=== PATIENT | female | born 1935 | race Caucasian/White ===

== ENCOUNTER 2017-01-11 10:08 | Inpatient (IN) ==
--- NOTE | 2017-01-11 10:29 | PROVIDER DOCUMENTATION ---
HPI-Abdominal Pain/GI Problem - General Chief Complaint: N/V/D Stated Complaint: N/V/D Time Seen by Provider: 01/11/17 10:14 Source: patient, EMS Allergies/Adverse Reactions: Patient Allergies Allergy/AdvReac Type Severity Reaction Status Date / Time No Known Allergies Allergy Verified 01/11/17 10:16 Home Medications: Home Medication List Medication Instructions Recorded Confirmed Last Taken Type Sitagliptin Phos/Metformin HCl 1 each PO BID 09/27/14 12/14/16 01/31/16 History [Janumet 50-1,000 mg Tablet] Alprazolam 0.5 mg PO BID PRN PRN #60 tablet 09/29/14 12/14/16 01/31/16 Rx Amlodipine Besylate 10 mg PO DAILY #30 tablet 09/29/14 12/14/16 01/31/16 Rx Docusate Sodium 100 mg PO BID #60 capsule 09/29/14 12/14/16 01/31/16 Rx Donepezil HCl [Aricept] 5 mg PO QPM #30 tablet 09/29/14 12/14/16 01/30/16 Rx Lisinopril 20 mg PO BID #30 tablet 09/29/14 12/14/16 01/31/16 Rx Mirtazapine 15 mg PO QHS #30 tablet 09/29/14 12/14/16 01/30/16 Rx Simvastatin 20 mg PO QHS #30 tablet 09/29/14 12/14/16 01/30/16 Rx Levothyroxine [Synthroid] 25 microgm PO DAILY 02/01/16 12/14/16 01/31/16 History Olanzapine Rapdis [Zyprexa Zydis] 2.5 mg PO QHS #30 tablet 02/04/16 12/14/16 Unknown Rx Amitriptyline [Elavil] 10 mg PO HS 12/14/16 12/14/16 Unknown History Furosemide [Furosemide] 20 mg PO DAILY 12/14/16 12/14/16 Unknown History Furosemide [Lasix] 20 mg PO DAILY #30 tablet 12/14/16 Unknown Rx - History of Present Illness-ABD Nature of Presenting Problems: 81 YO WF with hx of Alzheimers on Hospice presents by EMS for nausea/vomiting and stomach pain. Vomited several times this morning, thinks has had diarrhea but doesn't know. No new medication. Denies pain other than in her stomach. Abdominal Pain Onset Location: reports: RLQ, epigastric Pain Radiation: reports: no radiation Quality of Pain: reports: cramping Severity in ED: reports: moderate Onset/Duration: reports: this morning Activities at Onset: reports: sleep Exposure to sick contacts?: No Modifying Factors: improves with: nothing Associated Symptoms: reports: nausea, vomiting. denies: anxiety, arm pain, back /neck pain, chest pain, constipation, cough, diaphoresis, diarrhea, dizziness, EENT symptoms, fever/chills, genitourinary problems, headaches, heartburn, sinus congestion/drainage, rash, shortness of breath, sensory/motor loss, syncope, weakness Last BM: unsure Dark Stools Present?: reports: none noticed Rectal Bleeding: reports: none Rectal Pain: reports: none Review of Systems - Adult - REVIEW OF SYSTEMS - ADULT Constitutional: denies: chills, fever Eyes: denies: decreased vision, blurred vision, double vision Ears, Nose, Mouth & Throat: reports: no symptoms reported Cardiovascular: denies: chest pain, syncope Respiratory: denies: cough, shortness of breath, wheezing Gastrointestinal: reports: abdominal pain, diarrhea, nausea, vomiting Genitourinary: reports: no symptoms reported Musculoskeletal: denies: bone pain, back pain, joint pain, joint swelling, neck pain Integumentary: denies: itching, rash Neurological: denies: dizziness/vertigo, headache/migraines Psychiatric: reports: no symptoms reported Past History - Adult - PAST MEDICAL HISTORY-ADULT Review of Records: reports: Old Records Reviewed, Nursing Assessment Review, Medications Reviewed Major Childhood Illnesses: reports: denies history Cardiovascular: reports: HTN, hyperlipidemia Endocrine/Immune: reports: Diabetes, thyroid disorder Other Conditions: reports: MRSA - PRIOR SURGERIES/PROCEDURES Surgical/Procedure History: reports: orthopedic (extremity) (foot surgery) - PRIOR HOSPITALIZATIONS Prior Hospitalizations: reports: for other non-related - IMMUNIZATION STATUS Childhood Immunizations: See Nurse Assessment Flu Vaccine: See Nurse Assessment - FAMILY HISTORY Family History: reviewed, not pertinent Physical Exam-General - PHYSICAL EXAM-ADULT Initial Vital Signs Reviewed: Yes - CONSTITUTIONAL General Appearance: alert, mild distress - EYES Eyes: PERRL/EOMI, pink conjunctivae. negative: sclera injected, scleral icterus - HEAD, EARS, NOSE, MOUTH & THROAT HENMT: normocephalic/atraumatic, pharynx normal. negative: angioedema, hearing deficit - NECK Neck: full range of motion, supple, normal inspection - RESPIRATORY Respiratory: chest non-tender, lungs clear, normal breath sounds, no pleuratic chest pain, no respiratory distress, no accessory muscle use. negative: crackles, rales, rhonchi, stridor, wheezing - CARDIOVASCULAR Cardiovascular: normal peripheral pulses, regular rate, rhythm - GASTROINTESTINAL (ABDOMEN) Abdominal Exam: normal bowel sounds, soft, tenderness (epigatric, RLQ). negative: distended, guarding, rigid, rebound - LYMPHATIC Lymphatic: negative: cervical node tenderness - MUSCULOSKELETAL Extremity: non-tender, normal gait, normal inspection, no pedal edema, no calf tenderness. negative: deformity, erythema, inflammation, joint effusion Peripheral Pulses: radial (R): 2+, radial (L): 2+ - SKIN Integumentary: warm/dry, pallor - NEUROLOGIC Neurologic: transportation consultant II-XII nml as tested, grossly normal - PSYCHIATRIC Psych/Mental Status: other (pt calm and answers questions, but can't remember anything) Progress - PLAN OF CARE/RESULTS Progress/Plan/Lab Results: Vital Signs - 8 hr 01/11/17 10:09 Temperature 97.1 F L Pulse Rate 74 Respiratory Rate 16 Blood Pressure 129/58 O2 Sat by Pulse Oximetry 96 Orders Category Date Time Status Saline Loc DIRECTED Care 01/11/17 10:22 Ordered NPO Diet 01/11/17 10:22 Ordered AMYLASE [CHEM] Stat Lab 01/11/17 10:22 Ordered CBC WITH ELECTRONIC DIFF [HEME] Stat Lab 01/11/17 10:22 Ordered COMPREHENSIVE METABOLIC PANEL [CHEM] Stat Lab 01/11/17 10:22 Ordered LIPASE [CHEM] Stat Lab 01/11/17 10:[address] W/POSS RFLX CULT [URINALYSIS] Stat Lab 01/11/17 10:22 Uncollected Result Diagrams: 01/11/17 10:37 01/11/17 10:37 - REASSESSMENT Reassessment #1 Time Reassessed: 11:56 (Discussed wtih Dr. Amin. Admission for altered mental status, vomiting. Has UTI) - CONSULTS/PCP/HOSPITALIST Notification #1 *Consult/PCP/Hospitalist*: Sushma Schneider NP for Dr. Hart Time Discussed: 12:06 (Admit for hyponatremia, altered mental status, vomiting) Consult Disposition: Admit Departure - Departure Date of Disposition Decision: 01/11/17 Time of Disposition Decision: 12:09 DIAGNOSIS: Hyponatremia Altered mental status Qualifiers: Altered mental status type: unspecified Qualified Code(s): R41.82 - Altered mental status, unspecified UTI (urinary tract infection) Qualifiers: Urinary tract infection type: site unspecified Hematuria presence: without hematuria Qualified Code(s): N39.0 - Urinary tract infection, site not specified Vomiting Qualifiers: Vomiting type: unspecified Vomiting Intractability: non-intractable Nausea presence: with nausea Qualified Code(s): R11.2 - Nausea with vomiting, unspecified Disposition: ADMITTED INPATIENT 09 Certified Medical Emergency: Emergent Condition: Stable - Critical Care Note This patient required my direct & personal management of CC.: No Attestation - Physician/ TIERA Attestation Patient care was provided by Advanced Practice Provider:: Yes Advanced Practice Provider:: Jamie Delgado Advanced Practice Provider documentation review:: The Mid-level provider documentation, treatment plan and medical decision making was reviewed by the physician who agrees with all treatment and medical decision making by the P. The physician spent face to face time with patient:: No Advanced Practice Provider documentation review:: Supervising physician onsite and consulted in the evaluation and care of this patient. The physician did not have a face to face encounter with the patient.
[2017-01-11 10:42] LABS: MANUAL DIFF NEEDED? NO
[2017-01-11 10:43] LABS: BASO% 0.3 % (0.0-0.8); EOS# 0.04 X1000 (0.0-0.7); EOS% 0.6 % (0.0-10.0); HEMATOCRIT 34.1 % (37.0-47.0); HEMOGLOBIN 11.7 g/dL (12.0-16.0); IMM GRAN# 0.05 X1000 (0.0-0.04); IMM GRAN% 0.8 % (0.0-0.5); LYMPH# 1.34 X1000 (1.2-3.4); LYMPH% 20.8 % (20.5-51.1); MCH 27.6 PG (27-31); MCHC 34.3 g/dL (33-37); MCV 80.4 FL (81-99); MONO# 0.28 X1000 (0.11-0.59); MONO% 4.3 % (1.7-9.3); MPV 10.3 FL (7.4-10.4); NEUT% 73.2 % (42.2-75.2); PLT 175 X1000 (130-400); RBC 4.24 XMIL (4.2-5.4)
[2017-01-11 11:04] LABS: ALBUMIN 3.8 g/dL (3.5-5.0); CALCIUM 8.8 mg/dL (8.8-10.2); POTASSIUM 4.3 mmol/L (3.5-5.1); TOTAL BILIRUBIN 0.4 mg/dL (0.20-1.00); TOTAL PROTEIN 7.6 g/dL (6.3-8.3)
[2017-01-11 11:30] LABS: BILIRUBIN URINE NEGATIVE (NEGATIVE); BLOOD URINE NEGATIVE (NEGATIVE); CLARITY CLEAR (CLEAR); COLOR YELLOW; LEUKOCYTES URINE 2+ (NEGATIVE); NITRITE URINE POSITIVE (NEGATIVE); PROTEIN URINE TRACE mg/dL (NEGATIVE); SP GRAVITY URINE 1.015; UROBILINOGEN URINE NORMAL
[2017-01-11 11:31] LABS: URINE EPITHELIAL CELLS <10 /HPF (<10); URINE WBC 20-40 /HPF (<10)
[2017-01-11 11:32] LABS: URINE CULTURE PL NEEDED? YES; URINE SOURCE CATH
[2017-01-11] MEDS ORDERED: NS 1,000 ML IV ONE (11:50)
[2017-01-11] MEDS ORDERED: ZOFRAN ONE (12:04)
[2017-01-11] MEDS ORDERED: ZOFRAN IV ONE (12:26)
[2017-01-11] MEDS ORDERED: ZOFRAN IV PRN (17:11)
[2017-01-11] MEDS: NS 1,000 ML IV SCH (17:37)
[2017-01-11] MEDS: LEVAQUIN 500 MG/D5W 500 MG/100 ML IVPB IV SCH (17:38)
[2017-01-11] MEDS: XANAX PO PRN (18:11)
[2017-01-11] MEDS: ELAVIL PO SCH (20:46)
[2017-01-11] MEDS: ZYPREXA ZYDIS PO SCH (20:46)
[2017-01-11] MEDS: PRINIVIL PO SCH (20:47)
[2017-01-11] MEDS: COLACE PO SCH (20:47)
[2017-01-11] MEDS: ARICEPT PO SCH (20:47)
[2017-01-11] MEDS: REMERON PO SCH (20:47)
--- NOTE | 2017-01-12 03:48 | PROGRESS NOTE ---
DATE: 01/11/2017 ADDENDUM: Patient seen and examined. Plan discussed with nurse practitioner. Please see full note. Patient currently is confused. She does have a UTI and has some metabolic encephalopathy, although she has baseline dementia. We will continue to follow. Certainly expect that patient may need further inpatient treatment after her medical has stabilized and will need to be transitioned to rehab. We will continue to follow. cc: Donovan Hart MD
[2017-01-12] MEDS: PRILOSEC PO SCH (06:19)
[2017-01-12 06:31] LABS: HEMATOCRIT 32.6 % (37.0-47.0); HEMOGLOBIN 10.7 g/dL (12.0-16.0); MCH 26.5 PG (27-31); MCHC 32.8 g/dL (33-37); MCV 80.7 FL (81-99); MPV 10.5 FL (7.4-10.4); RBC 4.04 XMIL (4.2-5.4)
[2017-01-12] MEDS: NS 1,000 ML IV SCH ×2 (06:43→19:59)
[2017-01-12] MEDS ORDERED: SYNTHROID PO SCH (07:00)
[2017-01-12 07:19] LABS: AGAP 9; ALBUMIN 3.2 g/dL (3.5-5.0); ALKALINE PHOSPHATASE 97 U/L (32-104); BUN 11 mg/dL (8-22); CALCIUM 8.5 mg/dL (8.8-10.2); CHLORIDE 103 mmol/L (98-107); COSMO 275; GOT 13 U/L (10-30); GPT 10 U/L (10-36); MAGNESIUM 1.6 mg/dL (1.5-2.7); POTASSIUM 3.8 mmol/L (3.5-5.1); SODIUM 136 mmol/L (136-145); TCO2 24 mmol/L (25-35); TOTAL PROTEIN 6.5 g/dL (6.3-8.3)
[2017-01-12] MEDS: LASIX PO SCH (08:08)
[2017-01-12] MEDS: PRINIVIL PO SCH ×2 (08:08→20:30)
[2017-01-12] MEDS: COLACE PO SCH ×2 (08:08→20:30)
[2017-01-12] MEDS: NORVASC PO SCH (08:08)
[2017-01-12] MEDS ORDERED: SYNTHROID PO ONE (08:30)
--- NOTE | 2017-01-12 11:19 | Diag Imaging Result Doc PS360 ---
EXAM: CHEST-PORTABLE HISTORY: Rehab Placement TECHNIQUE: Single view of the chest was performed portably. COMPARISON: 12/14/2016 FINDINGS: There is mild cardiomegaly. The pulmonary vasculature is not congested. No infiltrate, effusion, or pneumothorax is appreciated. There are degenerative changes about the humeral heads bilaterally. IMPRESSION: Mild cardiomegaly. No acute cardiopulmonary abnormality is identified. Electronically signed by Danielle Engle 01/12/2017 11:16 AM
--- NOTE | 2017-01-12 16:41 | HISTORY AND PHYSICAL ---
PRIMARY CARE PHYSICIAN: Dr. Paulo Etienne. CHIEF COMPLAINT: Nausea, vomiting and diarrhea. HISTORY OF PRESENT ILLNESS: This is an 81-year-old female with a history of Alzheimer, who is presently on hospice, who presented to the emergency room for reportedly nausea , vomiting and abdominal pain. She had vomited up quite a few times this morning, had diarrhea , therefore was sent to the emergency room for evaluation. She does have a history of diabetes mellitus, as well as hypothyroidism. At the time of my exam, there are no family members present , and the patient is unable to give a history. She has been given IV hydration, as well as Zofran , and she is being admitted for further evaluation and treatment. PAST MEDICAL HISTORY: Diabetes mellitus, hypertension, dementia, hypothyroid, questionable irregular heart rhythm. PAST SURGICAL HISTORY: Hysterectomy and bilateral cataract surgery. SOCIAL HISTORY: Unable to obtain. ALLERGIES: No allergies per chart. HOME MEDICATIONS: A list will be obtained. REVIEW OF SYSTEMS: Unable to be obtained due to patient's dementia. PHYSICAL EXAMINATION: GENERAL: This is an 81-year-old female, who is lying in the bed in no distress at present. VITAL SIGNS: Blood pressure is 119/69 with a heart rate of 74, respirations are 18, temperature is 97.7 degrees with room air saturations of 98% to 100%. HEENT: Head is normocephalic, atraumatic. Pupils equal, round, react to light. EOMS are intact. Sclerae nonicteric. Mucous membranes are dry. NECK: Supple. Trachea midline. CARDIOVASCULAR: Regular rate and rhythm. S1, S2 appreciated. PULMONARY: Breath sounds are clear with no increased work of breathing noted. GASTROINTESTINAL: She does have some right epigastric tenderness. GASTROINTESTINAL: Abdomen is soft with bowel sounds in all 4 quadrants. EXTREMITIES: No clubbing, cyanosis, or edema. Calves are nontender. Pulses are palpable x4. NEUROLOGIC: She is alert. She is calm, but she cannot answer questions. She does have purposeful movement. LABS: WBC is 6.4 with hemoglobin 11.7, hematocrit 34.1, and platelets 175. Sodium is 130, potassium 4.3, BUN 19, creatinine 0.9 with glucose of 343. Lipase is 63, nitrite positive, 20-40 microscopic white blood cells and 3+ bacteria. Urine culture is pending. X-RAYS: Her chest x-ray revealed mild cardiomegaly, no acute cardiopulmonary abnormality identified. ASSESSMENT AND PLAN: 1. Nausea, vomiting and diarrhea. 2. Urinary tract infection. 3. Hyponatremia. 4. Elevated lipase. 5. History of diabetes mellitus. 6. Hypertension. 7. Dementia. PLAN: She will be admitted to the hospital. Placed on telemetry. Will give gentle hydration. We will identify her home medications and continue as appropriate. Urine culture is pending. We will start with Levaquin and any change in antibiotics will be culture driven. Diet as tolerated. Pattern blood glucose with sliding scale insulin. Further treatments pending hospital course. Dictated by DANIEL Smith for Donovan Hart MD cc: DANIEL Smith MD MTDD
[2017-01-12] MEDS: HUMALOG DOSE (PARKWAY) SUBQ SCH ×2 (16:45→23:48)
[2017-01-12] MEDS: LEVAQUIN 500 MG/D5W 500 MG/100 ML IVPB IV SCH (16:46)
[2017-01-12] MEDS ORDERED: BENADRYL IM PRN (18:04)
[2017-01-12] MEDS: XANAX PO PRN (18:21)
[2017-01-12] MEDS: ELAVIL PO SCH (20:29)
[2017-01-12] MEDS: ZYPREXA ZYDIS PO SCH (20:29)
[2017-01-12] MEDS: REMERON PO SCH (20:30)
[2017-01-12] MEDS: ARICEPT PO SCH (20:30)
[2017-01-13] MEDS: HALDOL IM PRN ×2 (02:14→21:13)
[2017-01-13] MEDS: PRILOSEC PO SCH (06:39)
[2017-01-13] MEDS: SYNTHROID PO SCH (06:40)
[2017-01-13] MEDS: HUMALOG DOSE (PARKWAY) SUBQ SCH ×4 (06:40→21:13)
--- NOTE | 2017-01-13 09:02 | PROGRESS NOTE ---
DATE: 01/12/2017 SUBJECTIVE: The patient is confused, disoriented. She is convinced that she is in someone else's room and he will be mad when he comes back. OBJECTIVE: Vital Signs: Reviewed. She is afebrile. Blood pressure is stable. Heart rate is stable. General: Patient is awake, alert. She is very anxious, nervous and easily upset. She is confused, disoriented to time, person, place. HEENT: Normocephalic, atraumatic. Neck: Supple. CV: Regular rate. Chest: Clear. Abdomen: Soft. Extremities: Moves all extremities. Neurologic: No changes. ASSESSMENT: 1. Urinary tract infection. 2. Acute metabolic encephalopathy secondary to urinary tract infection. 3. Hyponatremia, resolved. PLAN: We will discontinue her Chahal. We will use Haldol, Benadryl as needed for acute agitation and continue to adjust her Seroquel, as well as other medications to attempt to help with her acute agitation. Further orders as needed. cc: Donovan Hart MD
[2017-01-13] MEDS: PRINIVIL PO SCH ×2 (09:37→20:35)
[2017-01-13] MEDS: LASIX PO SCH (09:37)
[2017-01-13] MEDS: COLACE PO SCH ×2 (09:37→20:35)
[2017-01-13] MEDS: NORVASC PO SCH (09:37)
--- NOTE | 2017-01-13 14:38 | PROGRESS NOTE ---
DATE: 01/13/2017 SUBJECTIVE: Patient without any new complaints. She is confused and no family is present. OBJECTIVE: Vital Signs: Reviewed. She is afebrile. Blood pressure is stable. Respiratory 22. General: Patient is awake, alert. She is confused, disoriented to person, place and time. She gets quite anxious at times when she gets confused and thinks that she is in someone else's room. HEENT: Normocephalic, atraumatic. Neck: Supple. CV: Regular rate. Chest: Clear. Abdomen: Soft. Extremities: Moves all extremities. ASSESSMENT: 1. Gram positive cocci urinary tract infection. Continue antibiotics. 2. Nausea, vomiting appears to be resolved 3. Chronic dementia, stable. 4. Hypertension. 5. Diabetes. PLAN: Will continue patient on antibiotics. Will follow culture and sensitivity. Will begin looking for rehab placement. Further orders as needed. cc: Donovan Hart MD
--- NOTE | 2017-01-13 15:55 | Diag Imaging Result Doc PS360 ---
US ABDOMEN-COMPLETE - 01/13/2017 INDICATION: ELEVATED LIPASE, N/V/D COMPARISON: None FINDINGS: The liver, gallbladder, spleen, pancreas, and both kidneys are normal. Common bile duct measures 7 mm. Aorta, IVC, and main portal vein are patent. IMPRESSION: Negative exam. Electronically signed by Jeffrey Nascimento 01/13/2017 3:53 PM
[2017-01-13] MEDS ORDERED: LEVAQUIN PO SCH (17:00)
[2017-01-13] MEDS: ARICEPT PO SCH (20:35)
[2017-01-13] MEDS: ELAVIL PO SCH (20:35)
[2017-01-13] MEDS: ZYPREXA ZYDIS PO SCH (20:35)
[2017-01-13] MEDS: REMERON PO SCH (20:35)
[2017-01-14] MEDS: HUMALOG DOSE (PARKWAY) SUBQ SCH ×4 (06:34→20:59)
[2017-01-14] MEDS: PRILOSEC PO SCH (06:35)
[2017-01-14] MEDS: SYNTHROID PO SCH (06:35)
[2017-01-14] MEDS: PRINIVIL PO SCH ×2 (08:27→21:03)
[2017-01-14] MEDS: LASIX PO SCH (08:27)
[2017-01-14] MEDS: COLACE PO SCH ×2 (08:27→21:03)
[2017-01-14] MEDS: NORVASC PO SCH (08:28)
[2017-01-14] MEDS: DOXYCYCLINE PO SCH ×2 (11:08→21:03)
--- NOTE | 2017-01-14 20:01 | PROGRESS NOTE ---
DATE: 01/14/2017 SUBJECTIVE: Patient is much more awake and alert this morning. She denies any complaints. Family is sitting in the room. Denies any GI or issues. OBJECTIVE: Vital Signs: Reviewed. Blood pressure is stable. Pulse 72, respiratory rate 18, blood pressure 126/55. General: Patient is awake, alert. She is actually oriented to time, person, place this morning. She is in no respiratory distress. Neck: Supple. CARDIOVASCULAR: Regular rate. Chest: Relatively clear. Abdomen: Soft. Extremities: Moves all extremities. ASSESSMENT: 1. Staph epidermidis urinary tract infection sensitive to doxycycline, resistant to Levaquin. 2. Acute metabolic encephalopathy appears resolved, secondary to urinary tract infection. 3. Nausea and vomiting secondary to urinary tract infection, resolved. 4. Chronic mild dementia. 5. Hypertension. 6. History of diabetes. 7. Hyponatremia, resolved. PLANS: Patient is much more awake and alert this morning, although she certainly is still weak and tired and may need rehab. We will readdress in the a.m. and determine her physical status at that point. Further orders as needed. cc: Donovan Hart MD
[2017-01-14] MEDS: ZYPREXA ZYDIS PO SCH (21:02)
[2017-01-14] MEDS: REMERON PO SCH (21:02)
[2017-01-14] MEDS: ELAVIL PO SCH (21:02)
[2017-01-14] MEDS: ARICEPT PO SCH (21:03)
[2017-01-14] MEDS: HALDOL IM PRN (21:04)
[2017-01-15] MEDS: SYNTHROID PO SCH (07:12)
[2017-01-15] MEDS: HUMALOG DOSE (PARKWAY) SUBQ SCH ×2 (07:12→11:28)
[2017-01-15] MEDS: PRILOSEC PO SCH (07:12)
[2017-01-15] MEDS ORDERED: GLUCOPHAGE PO SCH (08:00)
[2017-01-15] MEDS ORDERED: JANUVIA PO SCH (08:00)
[2017-01-15] MEDS ORDERED: NON-FORMULARY MED (Sitagliptin Phos/Metformin Hcl [Janumet 50-1,000 Mg Tablet] 1 EACH) PO SCH (09:00)
[2017-01-15] MEDS: COLACE PO SCH (09:13)
[2017-01-15] MEDS: PRINIVIL PO SCH (09:14)
[2017-01-15] MEDS: DOXYCYCLINE PO SCH (09:14)
[2017-01-15] MEDS: NORVASC PO SCH (09:14)
[2017-01-15] MEDS: LASIX PO SCH (09:14)
--- NOTE | 2017-01-15 13:13 | DISCHARGE SUMMARY ---
ADMISSION DATE: 01/11/2017 DISCHARGE DATE: 01/15/2017 DIAGNOSES: 1. Urinary tract infection, staph epidermidis; resistant to Levaquin, doxycycline sensitive. 2. Acute metabolic encephalopathy secondary to #1, resolved. 3. Nausea and vomiting secondary to #1, resolved. 4. Chronic mild dementia. 5. Hypertension. 6. Diabetes mellitus. 7. Hyponatremia, resolved. DIAGNOSTICS: On 01/12/2017 chest x-ray: Mild cardiomegaly. No acute cardiopulmonary abnormality is identified. On 01/13/2017 abdominal ultrasound revealed liver, gallbladder, spleen, pancreas, and both kidneys are normal. Common bile duct measures 7 mm. Aorta, IVC, and main portal vein are patent. Negative exam. HOSPITAL COURSE: Ms. Zamarripa presented to the emergency room complaining of nausea, vomiting, and diarrhea. She was found to have a urinary tract infection. She was initially started on Levaquin and once cultures returned it was noted that she was Levaquin resistant. Therefore, she was changed over to doxycycline which she is tolerating well. We did continue her home medications as appropriate. We trended electrolytes and repleted as necessary. She was noted to have a TSH of 7.33. Therefore, her levothyroxine was increased to 50 mcg daily. PHYSICAL EXAMINATION: Cardiovascular: Regular rate and rhythm. S1, S2 appreciated. Pulmonary: Breath sounds are clear. No increased work of breathing noted. Gastrointestinal: Abdomen is soft, nontender, nondistended. Bowel sounds in all 4 quadrants. Extremities: No clubbing, cyanosis, or edema. Calves are nontender. Pulses are palpable x4. DISCHARGE MEDICATIONS: Amlodipine 10 mg p.o. daily, Elavil 10 p.o. at bedtime, Aricept 5 every evening, Remeron 15 at bedtime, lisinopril 20 b.i.d., Lasix 20 mg daily, Janumet b.i.d., simvastatin 20 at bedtime, Zyprexa 2.5 p.o. at bedtime, Synthroid 50 mcg daily, doxycycline 100 mg p.o. b.i.d. for 5 days, alprazolam 0.5 p.o. b.i.d. p.r.n. DISCHARGE VITAL SIGNS: Blood pressure is 140/45, with a heart rate of 79, respirations are 18, temperature is 98 degrees. Room air saturations are 98 to 99%. DISPOSITION: She is being discharged to rehab in stable condition with family members present. TIME SPENT: This is a greater than 30 minute discharge. Dictated by DANIEL Smith for Donovan Hart MD cc: DANIEL Smith MD
[2017-01-15 14:59] VITALS: BP 111/87
--- NOTE | 2017-01-15 20:11 | PROGRESS NOTE ---
DATE: 01/15/2017 SUBJECTIVE: Patient without any new complaint. She is sleeping fine easily awakened. OBJECTIVE: HEENT: Normocephalic, atraumatic. JOY. Neck supple. CV: Regular rate. Chest: Clear . Vital signs: Temperature 98 degrees, pulse 79, respiratory 18, BP 140/45. ASSESSMENT: 1. Urinary tract infection with Staph epi greater than 100,000 colony-forming units. 2. Acute delirium resolved. Patient is awake, alert. 3. Nausea, vomiting resolved 4. Hyponatremia resolved. 5. Dementia stable. 6. Hypertension stable. PLAN: Will continue patient on antibiotics. Will continue to follow and hopefully she can be transitioned to rehab soon. cc: Donovan Hart MD
[2017-01-15] MEDS ORDERED: ZOCOR PO SCH (21:00)
== END 2017-01-15 15:17 ==
LOC: P.ED 10:08 → SUATTDRO 13:12 → SUPCPDRO 13:12 → P.MEDSURG 13:12
PROVIDERS: ADMIT Family Medicine; ATTEND Family Medicine